=== PATIENT | male | born 1990 | race Caucasian/White ===

== ENCOUNTER 2020-12-17 11:20 | Emergency (ER) | payer MEDICAID ==
--- NOTE | 2020-12-17 12:40 | EDM.PDOC ---
ED HPI GENERAL MEDICAL PROBLEM - General Chief Complaint: Chest Pain Stated Complaint: CHEST TIGHTNESS Time Seen by Provider: 12/17/20 12:31 Source of Information: Reports: Patient, RN Notes Reviewed History Limitations: Reports: No Limitations - History of Present Illness INITIAL COMMENTS - FREE TEXT/NARRATIVE: 30-year-old gentleman presents emergency department with a complaint of chest pain, he states that chest pain for long last day or so no nausea vomiting has felt fatigued sweaty at times some dizziness no heart disease in the family does use tobacco products no heart history himself Chest Pain Score (Numeric/FACES): 6 - Related Data Allergies Allergy/AdvReac Type Severity Reaction Status Date / Time No Known Allergies Allergy Verified 12/17/20 12:57 Home Meds: Home Meds NK [No Known Home Meds] 12/17/20 [History] Past Medical History Cardiovascular History: Reports: Arrhythmia Other Cardiovascular History: states as a baby Other Respiratory History: reactive airway as child Hematologic History: Reports: None Oncologic (Cancer) History: Reports: None Dermatologic History: Reports: None - Infectious Disease History Infectious Disease History: Reports: Chicken Pox - Past Surgical History HEENT Surgical History: Reports: None Cardiovascular Surgical History: Reports: None GI Surgical History: Reports: None Male Surgical History: Reports: None Social & Family History - Tobacco Use Tobacco Use Status *Q: Current Every Day Tobacco User Years of Tobacco use: 5 Packs/Tins Daily: 2 - Caffeine Use Caffeine Use: Reports: Coffee, Energy Drinks, Soda, Tea - Recreational Drug Use Recreational Drug Use: No ED ROS GENERAL - Review of Systems Review Of Systems: See Below Constitutional: Reports: Fatigue HEENT: Reports: No Symptoms Respiratory: Reports: No Symptoms Cardiovascular: Reports: Chest Pain GI/Abdominal: Reports: No Symptoms ED EXAM, GENERAL - Physical Exam Exam: See Below Exam Limited By: No Limitations General Appearance: Alert, WD/WN, No Apparent Distress Respiratory/Chest: No Respiratory Distress, Lungs Clear, Normal Breath Sounds, No Accessory Muscle Use, Chest Non-Tender Cardiovascular: Regular Rate, Rhythm, No Murmur GI/Abdominal: Soft, Non-Tender Extremities: No Pedal Edema #1 Interpretation EKG Date: 12/17/20 Time: 11:33 Rhythm: NSR [place]: Normal P-Wave: Present QRS: Normal ST-T: Normal QT: Normal Comparison: NA - No Prior EKG Course - Vital Signs Last Recorded V/S: Last Vital Signs Temp 97.8 F 12/17/20 11:49 Pulse 55 L 12/17/20 12:30 Resp 19 12/17/20 12:30 BP 114/75 12/17/20 12:30 Pulse Ox 93 L 12/17/20 12:30 - Orders/Labs/Meds Orders: Active Orders 24 hr Category Date Time Status Cardiac Monitoring [RC] .As Directed Care 12/17/20 12:37 Active EKG Documentation Completion [RC] ASDIRECTED Care 12/17/20 12:38 Active EKG 12 Lead [EK] Stat Ther 12/17/20 12:38 Ordered Labs: Laboratory Tests 12/17/20 12/17/20 12/17/20 Range/Units 12:53 12:53 12:53 WBC 6.6 (4.5-11.0) K/uL RBC 5.32 (4.30-5.90) M/uL Hgb 15.7 H (12.0-15.0) g/dL Hct 45.5 (40.0-54.0) % MCV 86 (80-98) fL MCH 30 (27-31) pg MCHC 35 (32-36) % Plt Count 216 (150-400) K/uL Neut % (Auto) 55 (36-66) % Lymph % (Auto) 34 (24-44) % [place] % (Auto) 7 H (2-6) % Eos % (Auto) 3 (2-4) % Baso % (Auto) 1 (0-1) % Sodium 143 (140-148) mmol/L Potassium 4.3 (3.6-5.2) mmol/L Chloride 104 (100-108) mmol/L Carbon Dioxide 28 (21-32) mmol/L Anion Gap 10.8 (5.0-14.0) mmol/L BUN 15 (7-18) mg/dL Creatinine 0.9 (0.8-1.3) mg/dL Est Cr Clr Drug Dosing 136.87 mL/min Estimated GFR (MDRD) > 60 (>60) Glucose 88 (74-106) mg/dL Lactic Acid 0.9 (0.4-2.0) mmol/L Calcium 9.1 (8.5-10.1) mg/dL Total Bilirubin 0.4 (0.2-1.0) mg/dL AST 17 (15-37) U/L ALT 25 (12-78) U/L Alkaline Phosphatase 80 (46-116) U/L Troponin I < 0.017 (0.000-0.056) ng/mL Total Protein 7.2 (6.4-8.2) g/dL Albumin 4.1 (3.4-5.0) g/dL Globulin 3.1 (2.3-3.5) g/dL Albumin/Globulin Ratio 1.3 (1.2-2.2) Departure - Departure Time of Disposition: 13:40 Disposition: Home, Self-Care 01 Condition: Fair Clinical Impression: Atypical chest pain Instructions: Nonspecific Chest Pain, Adult, [id number] Referrals: PCP,None [Primary Care Provider] - Forms: ED Department Discharge Additional Instructions: Try Tylenol or Motrin as needed for pain control, please followup with your primary care provider in 3-5 days if not better, please call return to the emergency department with worsening of symptoms. Sepsis Event Note (ED) - Evaluation Sepsis Screening Result: No Definite Risk - Focused Exam Vital Signs: Vital Signs Temp Pulse Resp BP Pulse Ox 12/17/20 12:30 55 L 19 114/75 93 L 12/17/20 12:00 67 22 H 116/75 94 L 12/17/20 11:49 97.8 F 58 L 21 H 114/73 96 12/17/20 11:43 97.8 F 58 L 21 H 114/73 96 - My Orders Last 24 Hours: My Active Orders 12/17/20 12:37 Cardiac Monitoring [RC] .As Directed 12/17/20 12:38 EKG Documentation Completion [RC] ASDIRECTED EKG 12 Lead [EK] Stat - Assessment/Plan Last 24 Hours: My Active Orders 12/17/20 12:37 Cardiac Monitoring [RC] .As Directed 12/17/20 12:38 EKG Documentation Completion [RC] ASDIRECTED EKG 12 Lead [EK] Stat Plan: Assessment Acuity = acute Site and laterality = atypical chest pain Etiology = unknown probably stress related component repetitive motion component Manifestations = none Location of injury = Home Lab values = CBC CMP troponin within normal limits EKG demonstrates a sinus rhythm there is no ST elevation or depression, chest x-ray no acute cardiopulmonary process Plan He is can use anti-inflammatories as needed for pain control follow-up primary care 3 to 5 days if not better This note was dictated using [employer] voice recognition software please call with any questions on syntax or grammar.
--- NOTE | 2020-12-17 13:01 | CR ---
CHEST: 2 view CLINICAL HISTORY:Chest pain COMPARISON:None FINDINGS: The heart size, pulmonary vascularity and hilar structures are normal. No infiltrate effusion or pneumothorax is seen. IMPRESSION: No acute cardiopulmonary process.
== END 2020-12-17 14:07 | disposition home or self-care (01) ==
LOC: JP.ED 11:20
DX: R07.89 Other chest pain (principal); Z72.0 Tobacco use
CPT/HCPCS: 36415; 71046; 71046-26; 80053; 83605; 84484; 85025; 93005; 99285-25

== ENCOUNTER 2021-02-13 15:07 | Emergency (ER) | payer MEDICAID ==
[2021-02-13] MEDS ORDERED: Alum Hydrox/Mag Hydrox/Simeth 15 ML, Lidocaine 2% 15 ML PO ONE ×2 (17:55)
[2021-02-13] MEDS ORDERED: Sodium Chloride 0.9% 80 ML IV SCH (19:15)
[2021-02-13] MEDS ORDERED: Iopamidol 612 MG/ML 100 ML Bottle IV SCH (19:15)
--- NOTE | 2021-02-13 19:47 | CRLCT ---
For Patients: As a result of the Century Cures Act, medical imaging exams and procedure reports are released immediately into your electronic medical record. You may view this report before your referring provider. If you have questions, please contact your health care provider. INDICATION: Low abdominal pain. TECHNIQUE: 100 mL Isovue-300 IV contrast. FINDINGS: Visualized lung bases are clear. Normal appendix. Normal gallbladder and biliary ducts. No pancreatic inflammation. No nephrolithiasis. Normal appearance of the large and small bowel. No air or fluid in the peritoneum. Solid viscera enhance appropriately. No bone lesion of significance. IMPRESSION: Negative CT of the abdomen and pelvis. Please note that all CT scans at this facility use dose modulation, iterative reconstruction, and/or weight-based dosing when appropriate to reduce radiation dose to as low as reasonably achievable. Dictated by Robert Barrett MD @ 02/13/2021 7:46:[address] Robert Barrett @ Feb 13 2021 7:46PM
--- NOTE | 2021-02-13 21:02 | EDM.PDOC ---
ED HPI GENERAL MEDICAL PROBLEM - General Chief Complaint: Abdominal Pain Stated Complaint: RT SIDE PAIN PROGRESSING ACROSS STOMACH INTO Time Seen by Provider: 02/13/21 16:10 Source of Information: Reports: Patient History Limitations: Reports: No Limitations - History of Present Illness INITIAL COMMENTS - FREE TEXT/NARRATIVE: 2-day new onset abdominal pain primarily bilateral lower abdomen however states he has some burning sensation and points to his sternal area. Patient is very nonspecific to his pain. He is not guarding, he has not tried anything for his pain. He cannot relate anything to mealtime. States it occurs at different times of the day. He states his bowel movements are normal to more soft than normal however the color has not changed. Patient denies blood in his stool, vomiting, or nausea. Onset: Sudden Onset Date: 02/12/21 Duration: Day(s):, Getting Worse Location: Reports: Abdomen (Bilateral lower quadrant), Pelvis, Other (States some burning in his chest pointing to his sternal area) Quality: Reports: Ache, Burning Severity: Moderate Improves with: Reports: None Worsens with: Reports: None Context: Reports: Activity Associated Symptoms: Reports: No Other Symptoms. Denies: Cough, Diaphoresis, Fever/Chills, Loss of Appetite, Nausea/Vomiting Treatments PRODUCE TEAM LEAD: Reports: Other (see below) (None) Left Abdomen Pain Score (Numeric/FACES): 5 - Related Data Allergies Allergy/AdvReac Type Severity Reaction Status Date / Time No Known Allergies Allergy Verified 02/13/21 15:20 Home Meds: Home Meds Albuterol Sulfate [Proventil Hfa] 2 puff IH Q4H PRN 02/13/21 [History] Dextroamphetamine/Amphetamine [Adderall 10 mg Tablet] 1 tab PO DAILY 02/13/21 [History] Past Medical History HEENT History: Reports: None Cardiovascular History: Reports: Arrhythmia Other Cardiovascular History: states as a baby Other Respiratory History: reactive airway as child Gastrointestinal History: Reports: None Genitourinary History: Reports: None Musculoskeletal History: Reports: None Neurological History: Reports: None Psychiatric History: Reports: None Endocrine/Metabolic History: Reports: None Hematologic History: Reports: None Oncologic (Cancer) History: Reports: None Dermatologic History: Reports: None, Other (See Below) Other Dermatologic History: multiple tatoos - Infectious Disease History Infectious Disease History: Reports: Chicken Pox - Past Surgical History HEENT Surgical History: Reports: None, Other (See Below) Other HEENT Surgeries/Procedures: papaloma r lateral tongue. Cardiovascular Surgical History: Reports: None GI Surgical History: Reports: None Male Surgical History: Reports: None Social & Family History - Tobacco Use Tobacco Use Status *Q: Current Every Day Tobacco User Years of Tobacco use: 5 Packs/Tins Daily: 2 Used Tobacco, but Quit: No Second Hand Smoke Exposure: Yes - Caffeine Use Caffeine Use: Reports: Coffee, Energy Drinks, Soda, Tea - Alcohol Use Days Per Week of Alcohol Use: 0 - Recreational Drug Use Recreational Drug Use: Yes Drug Use in Last 12 Months: Yes Recreational Drug Type: Reports: Cocaine, Marijuana/Hashish, Other (see below) Other Recreational Drug Type: cathy acid Recreational Drug Use Frequency: Not Used In Over 6 Months ED ROS GENERAL - Review of Systems Review Of Systems: See Below Constitutional: Reports: No Symptoms Respiratory: Reports: No Symptoms Cardiovascular: Reports: No Symptoms GI/Abdominal: Reports: Abdominal Pain. Denies: Black Stool, Bloody Stool, Constipation, Diarrhea, Nausea, Stool Incontinence, Vomiting : Reports: No Symptoms Musculoskeletal: Reports: No Symptoms Skin: Reports: No Symptoms Neurological: Reports: No Symptoms Psychiatric: Reports: No Symptoms Hematologic/Lymphatic: Reports: No Symptoms ED EXAM, GI/ABD - Physical Exam Exam: See Below Exam Limited By: No Limitations General Appearance: Alert, WD/WN, No Apparent Distress (Resting comfortably on the gurney) Throat/Mouth: Normal Inspection, Normal Lips, Normal Teeth Respiratory/Chest: No Respiratory Distress, Lungs Clear, Normal Breath Sounds Cardiovascular: Normal Peripheral Pulses, Regular Rate, Rhythm GI/Abdominal Exam: Normal Bowel Sounds, Soft, No Organomegaly, No Distention, No Abnormal Bruit, No Mass, Pelvis Stable, Guarding, Tender. No: Non-Tender Extremities: Normal Inspection, Normal Range of Motion Neurological: Alert, Oriented, CN II-XII Intact, Normal Cognition Psychiatric: Normal Affect, Normal Mood Skin Exam: Warm, Dry, Intact, Normal Color, No Rash Lymphatic: No Adenopathy Course - Vital Signs Last Recorded V/S: Last Vital Signs Temp 36.6 C 02/13/21 15:34 Pulse 78 02/13/21 15:34 Resp 18 02/13/21 15:34 BP 133/80 02/13/21 15:34 Pulse Ox 99 02/13/21 15:34 Vital signs stable, no fever - Orders/Labs/Meds Labs: Laboratory Tests 02/13/21 02/13/21 Range/Units 16:18 16:18 WBC 7.3 (4.5-11.0) K/uL RBC 5.15 (4.30-5.90) M/uL Hgb 15.0 (12.0-15.0) g/dL Hct 43.7 (40.0-54.0) % MCV 85 (80-98) fL MCH 29 (27-31) pg MCHC 34 (32-36) % Plt Count 203 (150-400) K/uL Neut % (Auto) 61.3 (36-66) % Lymph % (Auto) 27.2 (24-44) % [place] % (Auto) 7.1 H (2-6) % Eos % (Auto) 3.4 (2-4) % Baso % (Auto) 1.0 (0-1) % ESR 7 (0-20) mm/hr Sodium 142 (140-148) mmol/L Potassium 3.9 (3.6-5.2) mmol/L Chloride 104 (100-108) mmol/L Carbon Dioxide 27 (21-32) mmol/L Anion Gap 11.5 (5.0-14.0) mmol/L BUN 19 H (7-18) mg/dL Creatinine 1.1 (0.8-1.3) mg/dL Est Cr Clr Drug Dosing 111.98 mL/min Estimated GFR (MDRD) > 60 (>60) Glucose 82 (74-106) mg/dL Calcium 8.7 (8.5-10.1) mg/dL Total Bilirubin 0.4 (0.2-1.0) mg/dL AST 12 L (15-37) U/L ALT 24 (12-78) U/L Alkaline Phosphatase 96 (46-116) U/L C-Reactive Protein 0.06 (0.0-0.3) mg/dL Total Protein 7.2 (6.4-8.2) g/dL Albumin 4.1 (3.4-5.0) g/dL Globulin 3.1 (2.3-3.5) g/dL Albumin/Globulin Ratio 1.3 (1.2-2.2) Amylase 55 (25-115) U/L Lipase 167 (73-393) U/L Labs: No significant deviation from defined range. Monocytes slight elevation could signify irritable bowel. Meds: Medications Discontinued Medications Generic Name Dose Route Start Last Admin Trade Name Marcella PRN Reason Stop Dose Admin Al Hydroxide/Mg Hydroxide 15 0 ml 02/13/21 17:55 02/13/21 18:00 ml/ Lidocaine HCl 15 ml PO 02/13/21 17:56 30 ml ONETIME ONE Administration Sodium Chloride 80 mls @ 3 mls/sec 02/13/21 19:15 02/13/21 19:21 Normal Saline IV 3 mls/sec ASDIRECTED JANA Administration Iopamidol 100 ml 02/13/21 19:15 02/13/21 19:21 Iopamidol 612 Mg/Ml 100 Ml Bottle IV 100 ml . DIRECTED JANA Administration GI cocktail tried for sensation in the epigastric region. This was not successful. Proceeded to CT. - Radiology Interpretation Free Text/Narrative:: Per radiologist read negative CT of the abdomen and pelvis. CT Results Date: 02/13/21 CT Results Time: 19:30 - Re-Assessments/Exams Free Text/Narrative Re-Assessment/Exam: 02/13/21 23:08 Due to negative findings on lab work and negative CT patient would like to go home. If he fails to improve or if symptoms worsens he will return to ER. In the meantime he will try a bland diet and advance as tolerated. 02/13/21 23:09 Departure - Departure Time of Disposition: 21:26 Disposition: Home, Self-Care 01 Condition: Fair Clinical Impression: Abdominal pain - Discharge Information *PRESCRIPTION DRUG MONITORING PROGRAM REVIEWED*: Not Applicable *COPY OF PRESCRIPTION DRUG MONITORING REPORT IN PATIENT DERRICK: Not Applicable Instructions: Abdominal Pain, Adult, [id number], [place] Diet Referrals: PCP,None [Primary Care Provider] - Forms: ED Department Discharge Additional Instructions: Eat bland diet until symptoms improve. If symptoms do not improve or worsen return to clinic. Sepsis Event Note (ED) - Evaluation Sepsis Screening Result: No Definite Risk - Focused Exam Vital Signs: Vital Signs Temp Pulse Resp BP Pulse Ox 02/13/21 15:34 36.6 C 78 18 133/80 99 02/13/21 15:18 36.6 C 78 18 133/80 99
== END 2021-02-13 21:26 | disposition home or self-care (01) ==
LOC: JP.ED 15:07
DX: R10.31 Right lower quadrant pain (principal); R10.32 Left lower quadrant pain; Z72.0 Tobacco use
CPT/HCPCS: 36415; 74177; 80053; 82150; 83690; 85025; 85651; 86140; 99284; A9270; Q9967